=== PATIENT | male | born 1940 | race Caucasian/White ===

== ENCOUNTER 2017-10-20 13:18 | Emergency (ER) | payer MEDICARE ==
[~2017-10-20] VITALS: Ht 172.7 cm; Wt 52.0 kg
[2017-10-20 13:28] VITALS: BP 118/79
== END 2017-10-20 13:57 | disposition home or self-care (01) ==
LOC: ED 13:55
DX: F10.220 Alcohol dependence with intoxication, uncomplicated (principal); T73.0XXA Starvation, initial encounter; X58.XXXA Exposure to other specified factors, initial encounter
CPT/HCPCS: 99283